=== PATIENT | female | born 1970 | race Caucasian/White ===

== ENCOUNTER 2019-04-02 15:31 | Emergency (ER) | payer OTHER ==
[~2019-04-02] VITALS: Ht 157.5 cm; Wt 67.1 kg
[2019-04-02 15:36] VITALS: BP 123/75
--- NOTE | 2019-04-02 15:40 | NUR ---
PT BIB BY DAUGHTER [place] WITH C/O BACK PAIN RADIATING FROM NECK TO LOWER BACK DUE TO S/P FALL , PAIN 06/10 .FALL OCCURED ON 03/31/19. PT REPORTS SLIPPING BACKWARDS IN HER RESTROOM AND CATCHING HERSELF ON THE COUNTER. DENIED LOC, N/V AFTER FALL. PT TOOK IBUPROFEN FOR PAIN WITH LITTLE RELIEF, LAST DOSE YESTERDAY 5PM. PT STATES PAIN IS AGGRAVETED WHILE WALKING FAST AND BENDING. ER MD TO SEE THE PT. HX: NONE RX: NONE
--- NOTE | 2019-04-02 15:42 | NUR ---
PATIENT AMBULATED TO ER BED 2.
[2019-04-02] MEDS ORDERED: KETOROLAC 60 MG/2 ML VIAL IM ONE (16:05)
[2019-04-02] MEDS ORDERED: DIAZEPAM 5 MG TAB PO ONE (16:05)
[2019-04-02 17:03] VITALS: BP 123/75
--- NOTE | 2019-04-02 17:03 | NUR ---
Patient discharged with v/s stable. Written and verbal after care instructions given and explained. Patient alert, oriented and verbalized understanding of instructions. Ambulatory with steady gait. All questions addressed prior to discharge. ID band removed. Patient advised to follow up with PMD. Rx of VALIUM, NAPROSYN given. Patient educated on indication of medication including possible reaction and side effects. Opportunity to ask questions provided and answered.
== END 2019-04-02 17:03 | disposition home or self-care (01) ==
LOC: MED 15:31
DX: S39.012A Strain of muscle, fascia and tendon of lower back, initial encounter (principal); Z90.49 Acquired absence of other specified parts of digestive tract; Z98.890 Other specified postprocedural states; W18.2XXA Fall in (into) shower or empty bathtub, initial encounter; Y93.89 Activity, other specified; Y92.89 Other specified places as the place of occurrence of the external cause; Y99.8 Other external cause status
CPT/HCPCS: 96372; 99283; J1885